=== PATIENT | female | born 1985 | race Caucasian/White ===

== ENCOUNTER 2018-03-29 15:46 | Emergency (ER) | payer OTHER ==
[~2018-03-29] VITALS: Ht 160 cm; Wt 112.0 kg
[2018-03-29 15:52] VITALS: Ht 160 cm; Wt 112.0 kg
[2018-03-29 20:24] VITALS: BP 143/89
== END 2018-03-29 20:24 | disposition home or self-care (01) ==
LOC: ED 15:46
DX: R05 Cough (principal); R03.0 Elevated blood-pressure reading, without diagnosis of hypertension

== ENCOUNTER 2018-10-28 19:45 | Emergency (ER) | payer OTHER ==
[~2018-10-28] VITALS: Ht 160 cm; Wt 112.0 kg
[2018-10-28 19:51] VITALS: Ht 160 cm; Wt 112.0 kg
[2018-10-28 21:55] VITALS: BP 133/86
== END 2018-10-28 21:55 | disposition home or self-care (01) ==
LOC: ED 19:45
DX: S89.81XA Other specified injuries of right lower leg, initial encounter (principal); R03.0 Elevated blood-pressure reading, without diagnosis of hypertension; X50.1XXA Overexertion from prolonged static or awkward postures, initial encounter; Y93.89 Activity, other specified; Y92.89 Other specified places as the place of occurrence of the external cause; Y99.8 Other external cause status